=== PATIENT | female | born 1990 | race Caucasian/White ===

== ENCOUNTER 2017-10-16 08:42 | Day surgery (SDC) | END 2017-10-16 14:23 | disposition home or self-care (01) ==

== ENCOUNTER 2018-12-14 08:13 | Day surgery (SDC) | payer OTHER ==
[2018-12-14] VITALS (10 sets, daily range): BP systolic 92–141; BP diastolic 47–84; PULSE 72–110; RESP 15–22
[~2018-12-14] VITALS: Ht 152.4 cm; Wt 103.9 kg
[~2018-12-14 08:13] MED LIST: ALBU18HF INHALATION
[2018-12-14] MEDS ORDERED: BACITRACIN 50000 UNITS INJ ONE (09:10)
[2018-12-14] MEDS ORDERED: BACITRACIN/POLYMYXIN 28.35 GM OINT TOP ONE (10:15)
[2018-12-14] MEDS ORDERED: POLYMYXIN B 500000 UNIT INJ ONE (10:15)
[2018-12-14] MEDS ORDERED: BUPIVACAINE 0.5%/EPI (SDV) 30 ML INJ ONE (10:15)
--- NOTE | 2018-12-14 10:21 | PREAC ---
Date/Time of Note Date/Time of Note DATE: 12/14/18 TIME: 10:20 Anesthesia Eval and Record Evaluation Time Pre-Procedure Interview DATE: 12/14/18 TIME: 10:20 Age 28 Sex female NPO: 8 hrs Preoperative diagnosis Pilonidal cyst Planned procedure Pilonidal cystectomy Past Medical History Past Medical History: Includes Pulm: Asthma GI: Morbid obesity Surgery & Anesthesia Issues No known issue Meds Anticoagulation: No Beta Jasmin within 24 hr: No Reason Beta Jasmin not given: Pt. not on B-Jasmin Reported Medications Albuterol Sulfate* (Ventolin HFA*) 18 Gm Hfa.aer.ad, 2 PUFF INHALATION Q4H, #1 INHALER 10/16/17 Meds reviewed: Yes Allergies Coded Allergies: No Known Allergy (Unverified , 12/14/18) Allergies Reviewed: Yes Labs/Studies Labs Reviewed: Reviewed by anesthesiologist test: Negative Pre-procedure Exam Last vitals Vital Signs Date Temp Pulse Resp B/P (MAP) Pulse Ox O2 O2 Flow FiO2 Time Delivery Rate 12/14/18 97.9 72 16 112/61 98 Room Air 09:18 (78) Airway: Adequate mouth opening Mallampati: Mallampati II Teeth: Normal Lung: Normal Heart: Normal ASA Physical Status ASA physical status: 3 Emergency: None Planned Anesthetic General/MAC: ETT Planned Pain Management Parenteral pain med Pre-operative Attestations Prior to commencing anesthesia and surgery, the patient was re-evaluated, there was verification of: *The patient's identity *The results of appropriate recent lab work and preoperative vital signs *The above evaluation not changing prior to induction *Anesthetic plan, risk benefits, alternative and complications discussed with patient/family; questions answered; patient/family understands, accepts and wishes to proceed. CLINT HOUSE MD Dec 14, 2018 10:21
[2018-12-14] MEDS ORDERED: PROPOFOL 20 ML ONE (10:26)
[2018-12-14] MEDS ORDERED: ROCURONIUM 50 MG INJ ONE (10:26)
[2018-12-14] MEDS ORDERED: SUCCINYLCHOLINE CHLORIDE 100 MG/5 ML SYG IV ONE (10:26)
[2018-12-14] MEDS ORDERED: NEOSTIGMINE 3 MG/3 ML SYRINGE ONE ×2 (10:26→11:22)
[2018-12-14] MEDS ORDERED: GLYCOPYRROLATE 0.4 MG INJ ONE ×4 (10:26→11:22)
[2018-12-14] MEDS ORDERED: LIDOCAINE 2% (SDV) 5 ML INJ ONE (10:26)
[2018-12-14] MEDS ORDERED: MEPERIDINE 100 MG INJ ONE (10:51)
[2018-12-14] MEDS ORDERED: CEFAZOLIN 1 GM INJ ONE (11:21)
[2018-12-14] MEDS ORDERED: ONDANSETRON 4 MG INJ ONE (11:22)
[2018-12-14] MEDS ORDERED: METOCLOPRAMIDE 10 MG INJ ONE (11:22)
[2018-12-14] MEDS ORDERED: DIPHENHYDRAMINE 50 MG INJ IV PRN (12:00)
[2018-12-14] MEDS ORDERED: FENTAnyl 50 MCG/ML VIAL IV PRN ×3 (12:00)
[2018-12-14] MEDS ORDERED: hydrALAzine 20 MG INJ IV PRN (12:00)
[2018-12-14] MEDS ORDERED: METOCLOPRAMIDE 10 MG INJ IV PRN (12:00)
[2018-12-14] MEDS ORDERED: EPHEDrine SULFATE 50 MG/5 ML SYG IV PRN (12:00)
[2018-12-14] MEDS ORDERED: OXYCODONE/ACETAMINOPHEN (5/325) TAB PO PRN ×2 (12:00)
[2018-12-14] MEDS ORDERED: LABETALOL HCL 20MG INJ IV PRN (12:00)
[2018-12-14] MEDS ORDERED: MIDAZOLAM 1 MG/ML 2 ML INJ IV PRN (12:00)
[2018-12-14] MEDS ORDERED: HYDROmorphONE 1 MG/5 ML IV SYRINGE IV PRN ×3 (12:00)
[2018-12-14] MEDS ORDERED: MEPERIDINE 25 MG INJ IV PRN (12:00)
[2018-12-14] MEDS ORDERED: ONDANSETRON 4 MG INJ IV PRN ×2 (12:00→12:30)
--- NOTE | 2018-12-14 12:11 | OPR ---
Date/Time of Note Date/Time of Note DATE: 12/14/18 TIME: 12:07 Operative Report Procedure Date: Dec 14, 2018 Preoperative Diagnosis Pilonidal cyst Postoperative Diagnosis Pilonidal cyst Operation/Procedure Performed 1. Pilonidal cystectomy (complex) 2. Creation of local advancement flaps 3. Implantation of biological extracellular matrix Surgeon see signature line Piece Dyer Sachin Baker MD Anesthesia Type: general Anesthesiologist: CLINT HOUSE MD Estimated Blood Loss: minimal Transfusion none Specimen Pilonidal cyst Grafts/Implants Amniofill biological extracellular matrix 1000 mg Complications none Pt Condition Post Procedure: stable Disposition: PACU Indications The patient is an morbidly obese 28-year-old female who presented to the office with a pilonidal cyst. Patient recently had a pilonidal abscess which required incision and drainage in the emergency room. Upon resolution of the acute infection she was scheduled for elective pilonidal cystectomy all risks and benefits of the procedure including, but not limited to: Wound infection, excessive bleeding, postoperative seroma/hematoma formation, prol onged wound healing, need for meticulous hygiene of the area in order to keep the area hair free, cyst/sinus recurrence, etc. were all explained to the patient in full detail. She fully understood and wished to proceed with the procedure. Informed consent was obtained. Procedure Description Patient was brought to the operating room and kept on her operating room stretcher. Bilateral sequential compression devices were placed on both lower extremities. A dose of broad-spectrum perioperative intravenous antibiotics was given. General anesthesia was induced with the patient on her stretcher. After the induction of smooth general endotracheal anesthesia the patient was then positioned in the prone jackknife position on the operating table. The buttocks was shaved and taped apart. The buttock area was then prepped and draped in standard surgical fashion. An elliptical incision was made using a 15 blade scalpel encompassing the area of the cyst in the prior incision and drainage site and extending to the inferior most midline hair pit. The area was anesthetized with 0.5% Marcaine with epinephrine prior to incision. Incision was taken down through the skin and into the subcutaneous tissues using Bovie electrocautery. Dissection was continued down to the level of the presacral fascia. The specimen was then transected at its base and passed off the field. Marking stitch was used to harry the superior aspect. Local advancement flaps were then raised circumferentially to aid in tension-free closure. The wound cavity was then irrigated using antibiotic irrigation and a pulse lavage machine. Hemostasis was inspected for and noted to be total. To aid in wound regeneration and minimize the risk of infection 1000 mg of acellular biological extracellular matrix was implanted on top of the presacral fascia and the deep tissues. The deep tissues were then reapproximated using interrupted 0 Vicryl sutures. The dermal layer was reapproximated using interrupted 3-0 Vicryl sutures. Further local anesthesia was applied around the skin of the incision site. The skin was reapproximated using interrupted 2-0 nylon sutures in vertical mattress fashion such that the incision laid just off the midline. Incision was then cleaned and sterile dressings were applied. The patient was then awoken from anesthesia and transported to the recovery room in stable condition. All counts were correct at the end of the case 2. AVI BUTT MD Dec 14, 2018 12:11
[2018-12-14] MEDS ORDERED: HYDROCODONE/APAP (5/325) TAB PO PRN ×2 (12:30)
[2018-12-14] MEDS ORDERED: KETOROLAC 30 MG INJ IV PRN (12:30)
[2018-12-14] MEDS ORDERED: IBUPROFEN 600 MG TAB PO PRN (12:30)
--- NOTE | 2018-12-14 13:30 | PAC ---
Date/Time of Note Date/Time of Note DATE: 12/14/18 TIME: 13:27 Post-Anesthesia Notes Post-Anesthesia Note Last documented vital signs Vital Signs Date Temp Pulse Resp B/P (MAP) Pulse Ox O2 O2 Flow FiO2 Time Delivery Rate 12/14/18 97.9 72 16 112/61 98 Room Air 09:18 (78) Activity: WNL Respiratory function: WNL Cardiovascular function: WNL Mental status: Baseline Pain reasonably controlled: Yes Hydration appropriate: Yes Nausea/Vomiting absent: Yes Comments BT: 98.8, BP: 136/74, HR: 83, RR: 18, Pulse Ox: 98 CLINT HOUSE MD Dec 14, 2018 13:30
== END 2018-12-14 14:03 | disposition home or self-care (01) ==
LOC: SDS 08:13
PROVIDERS: ATTEND Surgery
DX: L05.91 Pilonidal cyst without abscess (principal); J45.909 Unspecified asthma, uncomplicated
CPT/HCPCS: 11772; 88304; J0690; J2175; J2405; J2765; J3010; Z7512; Z7610; J2710